=== PATIENT | male | born 1995 | race Caucasian/White ===

== ENCOUNTER 2019-05-22 09:51 | Emergency (ER) | payer OTHER ==
[~2019-05-22] VITALS: Ht 190.5 cm; Wt 71.7 kg
--- NOTE | 2019-05-22 10:35 | NUR ---
patient accompanied by friend-reports pain in left foot. swelling noted. denies any trauma or injury patient admits to IV drug use.
--- NOTE | 2019-05-22 10:45 | NUR ---
friend tells this RN that friends reported to her that patient overdosed last night. friend states she was called over to stay with him and make sure he is safe. patient denies any suicidal thoughts however, friend states that he has expressed suicidal thoughts to family and friends on multiple occasions. patient states "I dont remember what I was trying to do"
[2019-05-22 11:00] LABS: BASOPHILS # (AUTO) 0.1 K/uL (0.0-8.0); EOSINOPHILS # (AUTO) 0.4 K/uL (0.0-0.7); EOSINOPHILS % (AUTO) 3.5 % (0.0-7.0); HEMATOCRIT 36.1 % (36.7-47.1); HEMOGLOBIN 11.8 g/dL (12.5-16.3); LYMPHOCYTES % (AUTO) 36.8 % (20.5-51.5); MEAN CORPUSCULAR HGB CONC 33 g/dL (32.5-36.3); MEAN CORPUSCULAR VOLUME 85.3 fL (73.0-96.2); MONOCYTES % (AUTO) 9.3 % (0.0-11.0); NEUTROPHILS # (AUTO) 5.4 K/uL (1.8-8.9); NEUTROPHILS % (AUTO) 49.4 % (38.5-71.5); PLATELET COUNT (AUTO) 231 K/uL (152-348); RED BLOOD CELL COUNT(AUTO) 4.23 MIL/uL (4.06-5.63); WHITE BLOOD COUNT (AUTO) 10.9 K/uL (3.6-10.2)
[2019-05-22 11:13] LABS: ETHANOL < 3 MG/DL (0-0)
[2019-05-22] MEDS ORDERED: IV NORMAL SALINE 1000 ML BAG IV ONE ×2 (11:15)
[2019-05-22 11:16] LABS: ALANINE AMINOTRANSFERASE 46 U/L (16-63); ALKALINE PHOSPHATASE 83 U/L (50-136); ASPARTATE AMINOTRANSFERASE 37 U/L (15-37); BILIRUBIN,DIRECT 0.1 mg/dL (0.0-0.2); BILIRUBIN,TOTAL 0.4 mg/dL (0.2-1.0); CARBON DIOXIDE 31 mmol/L (21-32); CHLORIDE 102 mmol/L (98-107); GLUCOSE 117 mg/dL (74-106); POTASSIUM 3.9 mmol/L (3.5-5.1); TOTAL PROTEIN, SERUM 7.1 g/dL (6.4-8.2)
[2019-05-22 11:38] LABS: UREA NITROGEN, BLOOD 13 mg/dL (7-18)
[2019-05-22 11:40] LABS: ACETAMINOPHEN < 2.0 ug/mL (10-30)
[2019-05-22] MEDS: CEFTRIAXONE 2 G in IV DEXTROSE 5% 100 ML IV ONE ×2 (11:45→12:05)
[2019-05-22] MEDS ORDERED: AZITHROMYCIN 250 MG TABLET PO ONE (11:45)
[2019-05-22] MEDS ORDERED: AZITHROMYCIN 250 MG TABLET ONE (11:54)
[2019-05-22] MEDS ORDERED: CEFTRIAXONE 1 G VIAL ONE (11:54)
--- NOTE | 2019-05-22 12:16 | NUR ---
patient sleeping in stretcher. VSS. Friend at bedside. Security at bedisde
[2019-05-22 12:22] LABS: *BILIRUBIN,URIN 1+ (NEGATIVE); *BLOOD, URINE NEGATIVE (NEGATIVE); *CLARITY,URINE CLEAR (CLEAR); *COLOR,URINE DARK YELLOW (YELLOW); *KETONES,URINE NEGATIVE (NEGATIVE); LEUKOCYTE ESTERASE ,URINE NEGATIVE (NEGATIVE); NITRITE, URINE NEGATIVE (NEGATIVE); UGLUCOSE NEGATIVE (NEGATIVE)
[2019-05-22 12:25] LABS: BACTERIA,URINE NONE SEEN /HPF (NONE SEEN); RBC,URINE 0-3 /HPF (0-3); SQUAMOUS EPITHELIAL CELL,UR FEW /HPF (NONE SEEN); WBC,URINE 0-3 /HPF (0-3)
--- NOTE | 2019-05-22 12:32 | NUR ---
Friend leaving- Left phone number of pts mom Aissatou,
[2019-05-22 12:34] LABS: *AMPHETAMINE, URINE POSITIVE (NEGATIVE); *BARBITURATE, URINE NEGATIVE (NEGATIVE); *CANNABINOID, URINE POSITIVE (NEGATIVE); *COCCAINE, URINE POSITIVE (NEGATIVE); *OPIATE, URINE POSITIVE (NEGATIVE); *PHENCYCLIDINE SCREEN,URINE NEGATIVE (NEGATIVE)
--- NOTE | 2019-05-22 12:45 | NUR ---
IV rocehphin infusion completed at 1245pm. No signs of redness or swelling at the site. No adverse reactions.
--- NOTE | 2019-05-22 12:47 | NUR ---
Called [facility], she stated she will be about an hour to two hours.
--- NOTE | 2019-05-22 13:10 | NUR ---
Sridevi, Crisis team at bedside for evaluation.
--- NOTE | 2019-05-22 14:30 | NUR ---
Informed by [facility]EE[facility] Laure[facility], that patient's mother had concerns he may have drugs amongst his belongings and is worried that if he were to leave the hospital he would use them. Patient's belongings searched and contraband items locked in contraband locker. Items include multiple small bags, napkins, and wrappers containing a range of items from white powder to dark mounds, beleived to be illicit substances. Multiple lighters, glass pipes, and syringes were among the items as well.
--- NOTE | 2019-05-22 14:38 | NUR ---
Call placed to the [place] [employer] ([employer]) to take possession of contraband items.
--- NOTE | 2019-05-22 15:33 | NUR ---
patient sitting up in stretcher. eatign [facility]. no signs of distress. Security at bedside
--- NOTE | 2019-05-22 16:10 | NUR ---
[facility] arrived, took possession of contraband items.
--- NOTE | 2019-05-22 17:15 | NUR ---
Report called to [facility]- RN transferred to [address] [place] [address]- Pt going to 16 bed 2
--- NOTE | 2019-05-22 17:42 | NUR ---
Transport called- Ambulance from [facility] will arrive in approx 45 min. [facility] #- [id number]
[2019-05-25 05:06] LABS: *GC NAA Negative (Negative); *TRIC.VAG. NAA Negative (Negative)
== END 2019-05-22 18:57 | disposition short-term general hospital (02) ==
LOC: ER 09:51
DX: M79.672 Pain in left foot (principal); R22.42 Localized swelling, mass and lump, left lower limb; F32.9 Major depressive disorder, single episode, unspecified; F11.10 Opioid abuse, uncomplicated; F15.10 Other stimulant abuse, uncomplicated; F14.10 Cocaine abuse, uncomplicated; F13.10 Sedative, hypnotic or anxiolytic abuse, uncomplicated; Z71.6 Tobacco abuse counseling; J45.909 Unspecified asthma, uncomplicated
CPT/HCPCS: 36415; 73610; 73630; 80048; 80076; 80307; 81000; 81001; 85025; 85651; 87491; 96365; 99291; 99292; G0480 ×2; G0481; J0696; A4663; J3490; J7030; Q0144